=== PATIENT | female | born 1975 | race Caucasian/White ===

== ENCOUNTER 2018-04-12 20:17 | Inpatient (IN) | payer OTHER ==
[~2018-04-12] VITALS: Ht 157.5 cm; Wt 72.6 kg
[2018-04-12 22:04] LABS: BASOPHILS % 0.3 % (0.0-2.0); EOSINOPHILS % 0.5 % (0.0-5.0); HEMATOCRIT. 28.2 % (36.0-48.0); LYMPHOCYTES % 8.6 % (20.0-50.0); MEAN CORPUSCULAR HEMOGLOBIN 31.7 pg (28.0-32.0); MEAN CORPUSCULAR VOLUME 89.7 fL (81.0-99.0); MEAN PLATELET VOLUME 7.7 fl (7.4-10.4); MONOCYTES % 2.6 % (2.0-8.0); PLATELET 252 x1000/uL (130-400); RED BLOOD CELL COUNT 3.15 mill/uL (4.2-5.4); RED CELL DISTRIBUTION WIDTH 18.8 % (11.6-14.6)
[2018-04-12 22:10] LABS: CHLORIDE 102 mEq/L (98-107)
[2018-04-12] MEDS ORDERED: POTASSIUM CHLORIDE 20MEQ TABLET SR PO ONE (23:45)
[2018-04-13] VITALS: BP 139/73
[2018-04-13] MEDS ORDERED: ACETAMINOPHEN 325MG TABLET PO PRN (00:30)
[2018-04-13] MEDS ORDERED: HYDROCODONE/ACETAMINOPHEN 5/325MG TABLET PO PRN (00:30)
[2018-04-13] MEDS ORDERED: DOCUSATE SODIUM 100MG CAPSULE PO PRN (00:30)
[2018-04-13] MEDS ORDERED: CLONIDINE 0.1MG TABLET PO PRN (00:30)
[2018-04-13] MEDS ORDERED: MORPHINE SULFATE 4 MG/ML CPJ (NOT FOR IM USE) IV PRN (00:30)
[2018-04-13] MEDS ORDERED: ONDANSETRON HCL 4MG/2ML INJ IV PRN (00:30)
[2018-04-13 00:33] VITALS: BP 139/73
[2018-04-13 04:00] VITALS: BP 150/82
[2018-04-13 08:00] VITALS: BP 158/86
[2018-04-13] MEDS ORDERED: ENOXAPARIN 40MG/0.4ML SYR SUBCUT SCH (09:00)
[2018-04-13] MEDS ORDERED: AMLODIPINE 10MG TABLET PO SCH (09:00)
[2018-04-13 10:28] VITALS: BP 158/86
== END 2018-04-13 11:05 | disposition home or self-care (01) | DRG 313 ==
LOC: ER 20:17 → ENRESERV 22:15 → 8WST 23:05 → EDBEDREQTM 23:08 → EDBEDREQ 23:08
PROVIDERS: ADMIT Hospitalist; ATTEND Hospitalist
DX: R07.89 Other chest pain (principal); F41.0 Panic disorder [episodic paroxysmal anxiety]; I45.81 Long QT syndrome
CPT/HCPCS: 36415; 71045; 80053; 83880; 84484; 85025; 85379; 93005; 93306; J1650

== ENCOUNTER 2019-01-25 03:23 | Inpatient (IN) | payer OTHER ==
[~2019-01-25] VITALS: Ht 157.5 cm; Wt 68.0 kg
[2019-01-25] MEDS ORDERED: ONDANSETRON HCL 4MG/2ML INJ IV STA (04:17)
[2019-01-25] MEDS ORDERED: MORPHINE SULFATE 4 MG/ML CPJ (NOT FOR IM USE) IV STA (04:17)
[2019-01-25 04:40] LABS: BASOPHILS % 0.3 % (0.0-2.0); EOSINOPHILS % 1.3 % (0.0-5.0); LYMPHOCYTES % 12.2 % (20.0-50.0); MEAN CORPUSCULAR HEMOGLOBIN 24.2 pg (28.0-32.0); MEAN CORPUSCULAR VOLUME 74.8 fL (81.0-99.0); MEAN PLATELET VOLUME 7.7 fl (7.4-10.4); MONOCYTES % 3.9 % (2.0-8.0); NEUTROPHILS % 82.3 % (40.0-76.0); PLATELET 234 x1000/uL (130-400); RED BLOOD CELL COUNT 2.75 mill/uL (4.2-5.4); RED CELL DISTRIBUTION WIDTH 20.6 % (11.6-14.6)
[2019-01-25 04:45] LABS: HEMATOCRIT. 20.6 % (36.0-48.0); HEMOGLOBIN. 6.7 g/dL (12.0-16.0)
[2019-01-25 04:48] LABS: CHLORIDE 106 mEq/L (98-107)
[2019-01-25] MEDS ORDERED: DOCUSATE SODIUM 100MG CAPSULE PO PRN (13:45)
[2019-01-25] MEDS ORDERED: ACETAMINOPHEN 325MG TABLET PO PRN (13:45)
[2019-01-25] MEDS ORDERED: CLONIDINE 0.1MG TABLET PO PRN (13:45)
[2019-01-25] MEDS ORDERED: ONDANSETRON HCL 4MG/2ML INJ IV PRN (13:45)
[2019-01-25] MEDS ORDERED: MAGNESIUM/ALUMINUM HYDROXIDE/SIMETHICONE 30ML UDC PO PRN (13:45)
[2019-01-25] MEDS ORDERED: HYDROCODONE/ACETAMINOPHEN 5/325MG TABLET PO PRN (13:45)
[2019-01-25] MEDS ORDERED: IPRATROPIUM/ALBUTEROL 0.5-3(2.5)MG/3ML NEB INH PRN (13:45)
[2019-01-25 14:40] LABS: TOTAL IRON BINDING CAPACITY 367 ug/dL (250-450)
[2019-01-25 15:00] VITALS: BP 145/65
[2019-01-25 16:00] VITALS: BP 131/69
[2019-01-25] MEDS: FERROUS SULFATE 325MG TABLET PO SCH (18:22)
[2019-01-25] MEDS: MULTIVITAMINS,THER W-MINERALS TABLET PO SCH (18:23)
[2019-01-25] MEDS: FOLIC ACID 1MG TABLET PO SCH (18:23)
[2019-01-25] MEDS: AMLODIPINE 2.5MG TABLET PO SCH ×2 (18:23→22:42)
[2019-01-25] MEDS ORDERED: AMLO2.5T45 MT (19:58)
[2019-01-25 20:00] VITALS: BP 131/65
[2019-01-25 22:05] LABS: HEMATOCRIT 24.1 % (36.0-48.0); HEMOGLOBIN 7.9 g/dL (12.0-16.0)
[2019-01-26] VITALS: BP 131/65
[2019-01-26 04:00] VITALS: BP 138/81
[2019-01-26 07:46] LABS: BASOPHILS % 0.3 % (0.0-2.0); EOSINOPHILS % 1.2 % (0.0-5.0); HEMATOCRIT. 22.7 % (36.0-48.0); HEMOGLOBIN. 7.6 g/dL (12.0-16.0); LYMPHOCYTES % 17.3 % (20.0-50.0); MEAN CORPUSCULAR HEMOGLOBIN 25.5 pg (28.0-32.0); MEAN CORPUSCULAR VOLUME 76.4 fL (81.0-99.0); MEAN PLATELET VOLUME 7.8 fl (7.4-10.4); MONOCYTES % 5.5 % (2.0-8.0); NEUTROPHILS % 75.7 % (40.0-76.0); PLATELET 229 x1000/uL (130-400); RED BLOOD CELL COUNT 2.97 mill/uL (4.2-5.4); RED CELL DISTRIBUTION WIDTH 21.8 % (11.6-14.6)
[2019-01-26 08:00] VITALS: BP 138/73
[2019-01-26 08:09] LABS: CHLORIDE 107 mEq/L (98-107)
[2019-01-26 08:26] LABS: HDL CHOLESTEROL 24 mg/dL (40-59)
[2019-01-26 08:27] LABS: LDL CHOLESTEROL 63 mg/dL (5-100)
[2019-01-26] MEDS: FERROUS SULFATE 325MG TABLET PO SCH (08:54)
[2019-01-26] MEDS: MULTIVITAMINS,THER W-MINERALS TABLET PO SCH (08:54)
[2019-01-26] MEDS: FOLIC ACID 1MG TABLET PO SCH (08:54)
[2019-01-26] MEDS: AMLODIPINE 2.5MG TABLET PO SCH (08:54)
[2019-01-26 12:00] VITALS: BP 125/77
[2019-01-26] MEDS ORDERED: FERR-71 PO (14:19)
[2019-01-26 14:22] VITALS: BP 125/76
== END 2019-01-26 15:10 | disposition home or self-care (01) | DRG 761 ==
LOC: ER 03:23 → 7WST 05:23 → EDBEDREQTM 05:31 → EDBEDREQ 05:31 → ENRESERV 13:45
PROVIDERS: ADMIT Family Medicine Adult Medicine; ATTEND Family Medicine Adult Medicine
PROC: 30233N1 Transfusion of Nonautologous Red Blood Cells into Peripheral Vein, Percutaneous Approach (ICD-10-PCS; principal; 2019-01-25)
DX: D25.9 Leiomyoma of uterus, unspecified (principal); D64.9 Anemia, unspecified; F10.10 Alcohol abuse, uncomplicated; I50.9 Heart failure, unspecified; I11.0 Hypertensive heart disease with heart failure; E80.6 Other disorders of bilirubin metabolism; R07.89 Other chest pain; R74.0 Nonspecific elevation of levels of transaminase and lactic acid dehydrogenase [LDH]; R73.9 Hyperglycemia, unspecified; Z82.49 Family history of ischemic heart disease and other diseases of the circulatory system; Z84.89 Family history of other specified conditions
CPT/HCPCS: 36415; 71045; 76700; 76830; 76856; 80048; 80061; 80076; 83036; 83540; 83550; 83735; 83880; 84100; 84443; 84484; 85014; 85018; 85379; 86850; 86900; 86920; 93005; 93306; 93970; 96374; 96375; 99285; J2270; J2405; P9016

== ENCOUNTER 2019-02-07 06:16 | Emergency (ER) | payer OTHER ==
[~2019-02-07] VITALS: Ht 157.5 cm; Wt 68.0 kg
[~2019-02-07 06:16] MED LIST: AMLO2.5T45 MT; FERR-71 PO
[2019-02-07 07:21] LABS: BASOPHILS % 0.5 % (0.0-2.0); CHLORIDE 105 mEq/L (98-107); EOSINOPHILS % 1.3 % (0.0-5.0); LYMPHOCYTES % 15.3 % (20.0-50.0); MEAN CORPUSCULAR HEMOGLOBIN 28.5 pg (28.0-32.0); MEAN CORPUSCULAR VOLUME 83.4 fL (81.0-99.0); MEAN PLATELET VOLUME 7.4 fl (7.4-10.4); MONOCYTES % 4.2 % (2.0-8.0); NEUTROPHILS % 78.7 % (40.0-76.0); PLATELET 278 x1000/uL (130-400); RED BLOOD CELL COUNT 2.22 mill/uL (4.2-5.4); RED CELL DISTRIBUTION WIDTH 27.8 % (11.6-14.6)
[2019-02-07 07:24] LABS: INR 1.1; PROTHROMBIN TIME 11.1 sec (9.6-11.0)
[2019-02-07 07:26] LABS: HCG SCREEN NEGATIVE
[2019-02-07 07:42] LABS: HEMATOCRIT. 18.5 % (36.0-48.0); HEMOGLOBIN. 6.3 g/dL (12.0-16.0)
[2019-02-07 08:14] LABS: PLATELET ESTIMATE NORMAL
[2019-02-07 11:22] VITALS: BP 116/71
== END 2019-02-07 11:23 | disposition home or self-care (01) ==
LOC: ER 06:16
DX: D64.9 Anemia, unspecified (principal); R10.31 Right lower quadrant pain; R10.32 Left lower quadrant pain; Z79.899 Other long term (current) drug therapy
CPT/HCPCS: 36415; 80053; 84703; 85025; 85610; 86850; 86900; 86901; 86920; 99291; J7040; Z7610; P9016

== ENCOUNTER 2019-03-07 06:00 | Inpatient (IN) | payer OTHER ==
[~2019-03-07] VITALS: Ht 157.5 cm; Wt 68.0 kg
[2019-03-07] MEDS ORDERED: SODIUM CHLORIDE 0.9% 1,000 ML IV ONE (06:25)
[2019-03-07] MEDS ORDERED: KETOROLAC 30MG/ML VIAL IV ONE (06:30)
[2019-03-07 06:45] LABS: CLARITY URINE CLOUDY (CLEAR); KETONES URINE TRACE (NEGATIVE); LEUKOCYTE ESTERASE URINE 1+ (NEGATIVE); NITRITE URINE NEGATIVE (NEGATIVE); OCCULT BLOOD URINE 3+ (NEGATIVE); PROTEIN URINE 2+ (NEGATIVE); SPECIFIC GRAVITY URINE 1.013 (1.005-1.030)
[2019-03-07 06:48] LABS: COLOR URINE BLOODY (YELLOW)
[2019-03-07 07:01] LABS: CHLORIDE 108 mEq/L (98-107)
[2019-03-07 07:02] LABS: BASOPHILS % 0.6 % (0.0-2.0); EOSINOPHILS % 2.7 % (0.0-5.0); LYMPHOCYTES % 19.4 % (20.0-50.0); MEAN CORPUSCULAR HEMOGLOBIN 33.6 pg (28.0-32.0); MEAN CORPUSCULAR VOLUME 96.7 fL (81.0-99.0); MEAN PLATELET VOLUME 7.4 fl (7.4-10.4); MONOCYTES % 4.7 % (2.0-8.0); NEUTROPHILS % 72.6 % (40.0-76.0); PLATELET 296 x1000/uL (130-400); RED BLOOD CELL COUNT 1.94 mill/uL (4.2-5.4)
[2019-03-07 07:04] LABS: PARTIAL THROMBOPLASTIN TIME 27.1 sec (23.4-31.0); PROTHROMBIN TIME 10.4 sec (9.6-11.0)
[2019-03-07 07:06] LABS: HEMATOCRIT. 18.7 % (36.0-48.0); HEMOGLOBIN. 6.5 g/dL (12.0-16.0)
[2019-03-07 07:28] LABS: B-HCG QUANTITATIVE < 1 mIU/mL (<3)
[2019-03-07] MEDS ORDERED: CEFTRIAXONE 1 G PREMIX 50 ML IV ONE (08:15)
[2019-03-07 10:35] VITALS: BP 150/76
[2019-03-07] MEDS ORDERED: MEDR10TA11 PO (11:10)
[2019-03-07] MEDS ORDERED: IBUP-1653 PO (11:13)
[2019-03-07] MEDS ORDERED: VIT1TABL77 PO (11:13)
[2019-03-07 12:00] VITALS: BP 155/70
[2019-03-07] MEDS ORDERED: DOCUSATE SODIUM 100MG CAPSULE PO PRN (14:30)
[2019-03-07] MEDS ORDERED: HYDROCODONE/ACETAMINOPHEN 5/325MG TABLET PO PRN (14:30)
[2019-03-07] MEDS ORDERED: ONDANSETRON HCL 4MG/2ML INJ IV PRN (14:30)
[2019-03-07] MEDS ORDERED: LORAZEPAM 0.5MG TABLET PO PRN (14:30)
[2019-03-07] MEDS ORDERED: SODIUM CHLORIDE 0.9% 1,000 ML IV SCH (15:00)
[2019-03-07] MEDS: ESTROGENS,CONJUGATED 25MG/VIAL IV SCH ×2 (15:43→22:55)
[2019-03-07] MEDS ORDERED: MVI, ADULT NO.1 10 ML, FOLIC ACID 1 MG, THIAMINE HCL 100 MG in SODIUM CHLORIDE 0.9% 1,0... IV SCH ×4 (16:00)
[2019-03-07 18:13] LABS: BASOPHILS % 0.3 % (0.0-2.0); EOSINOPHILS % 1.5 % (0.0-5.0); HEMATOCRIT. 22.1 % (36.0-48.0); HEMOGLOBIN. 7.6 g/dL (12.0-16.0); LYMPHOCYTES % 17.4 % (20.0-50.0); MEAN CORPUSCULAR HEMOGLOBIN 31.4 pg (28.0-32.0); MEAN CORPUSCULAR VOLUME 90.7 fL (81.0-99.0); MEAN PLATELET VOLUME 7.4 fl (7.4-10.4); MONOCYTES % 4.8 % (2.0-8.0); PLATELET 237 x1000/uL (130-400); RED BLOOD CELL COUNT 2.44 mill/uL (4.2-5.4); RED CELL DISTRIBUTION WIDTH 23.6 % (11.6-14.6)
[2019-03-07 18:21] LABS: PROTHROMBIN TIME 10.7 sec (9.6-11.0)
[2019-03-07 20:00] VITALS: BP 150/53
[2019-03-08] VITALS: BP 118/60
[2019-03-08] MEDS: ESTROGENS,CONJUGATED 25MG/VIAL IV SCH (03:59)
[2019-03-08 04:00] VITALS: BP 121/62
[2019-03-08 07:10] LABS: BASOPHILS % 0.4 % (0.0-2.0); EOSINOPHILS % 1.7 % (0.0-5.0); LYMPHOCYTES % 17.5 % (20.0-50.0); MEAN CORPUSCULAR HEMOGLOBIN 30.9 pg (28.0-32.0); MEAN CORPUSCULAR VOLUME 91.2 fL (81.0-99.0); MEAN PLATELET VOLUME 7.4 fl (7.4-10.4); MONOCYTES % 4.5 % (2.0-8.0); NEUTROPHILS % 75.9 % (40.0-76.0); PLATELET 217 x1000/uL (130-400); RED BLOOD CELL COUNT 2.08 mill/uL (4.2-5.4); RED CELL DISTRIBUTION WIDTH 23.4 % (11.6-14.6)
[2019-03-08 07:28] LABS: CHLORIDE 108 mEq/L (98-107)
[2019-03-08] MEDS ORDERED: FERROUS SULFATE 325MG TABLET PO SCH (07:50)
[2019-03-08 08:00] VITALS: BP 132/75
[2019-03-08 08:13] LABS: HEMOGLOBIN. 6.4 g/dL (12.0-16.0)
[2019-03-08 11:43] VITALS: BP 145/70
[2019-03-08 11:56] LABS: PLATELET ESTIMATE NORMAL
== END 2019-03-08 12:00 | disposition home or self-care (01) | DRG 812 ==
LOC: ER 06:00 → 6EST 08:01 → EDBEDREQ 08:13 → CANRESERV 09:27 → ENRESERV 09:27
PROVIDERS: ADMIT Obstetrics & Gynecology; ATTEND Obstetrics & Gynecology
PROC: 30233N1 Transfusion of Nonautologous Red Blood Cells into Peripheral Vein, Percutaneous Approach (ICD-10-PCS; principal; 2019-03-07)
DX: D50.0 Iron deficiency anemia secondary to blood loss (chronic) (principal); I10 Essential (primary) hypertension
CPT/HCPCS: 36415; 80048; 81003; 84702; 85049; 85384; 86850; 86900; 86920; 96374; 99285; J0696; J1410; J1885; J3411; J3490; J7030; P9021

== ENCOUNTER 2019-06-11 22:20 | Inpatient (IN) | payer OTHER ==
[~2019-06-11] VITALS: Ht 157.5 cm; Wt 72.6 kg
[~2019-06-11 22:20] MED LIST changes: +IBUP-1653 PO; +MEDR10TA11 PO; +VIT1TABL77 PO
[2019-06-11] MEDS ORDERED: SODIUM CHLORIDE 0.9% 1,000 ML IV ONE (23:52)
[2019-06-12] VITALS (10 sets, daily range): BP systolic 95–157; BP diastolic 59–82
[2019-06-12 00:10] LABS: BASOPHILS % 0.3 % (0.0-2.0); LYMPHOCYTES % 10.2 % (20.0-50.0); MEAN CORPUSCULAR HEMOGLOBIN 21.7 pg (28.0-32.0); MEAN CORPUSCULAR VOLUME 69.2 fL (81.0-99.0); MEAN PLATELET VOLUME 7.3 fl (7.4-10.4); MONOCYTES % 3.7 % (2.0-8.0); NEUTROPHILS % 84.8 % (40.0-76.0); PLATELET 228 x1000/uL (130-400); RED BLOOD CELL COUNT 2.42 mill/uL (4.2-5.4); RED CELL DISTRIBUTION WIDTH 21.3 % (11.6-14.6)
[2019-06-12 00:16] LABS: HEMOGLOBIN. 5.2 g/dL (12.0-16.0)
[2019-06-12 00:17] LABS: HEMATOCRIT. 16.7 % (36.0-48.0)
[2019-06-12 00:38] LABS: CLARITY URINE CLEAR (CLEAR); COLOR URINE YELLOW (YELLOW); KETONES URINE NEGATIVE (NEGATIVE); LEUKOCYTE ESTERASE URINE NEGATIVE (NEGATIVE); NITRITE URINE NEGATIVE (NEGATIVE); OCCULT BLOOD URINE NEGATIVE (NEGATIVE); PH URINE 5.5 (4.5-8.0); PROTEIN URINE NEGATIVE (NEGATIVE); SPECIFIC GRAVITY URINE 1.007 (1.005-1.030); UROBILINOGEN URINE 0.2 E.U./dL (0.2-1.0)
[2019-06-12 00:41] LABS: CHLORIDE 108 mEq/L (98-107)
[2019-06-12 01:42] LABS: TOTAL IRON BINDING CAPACITY 446 ug/dL (250-450)
[2019-06-12] MEDS ORDERED: FUROSEMIDE 20MG/2ML VIAL IVP ONE (02:15)
[2019-06-12 05:01] LABS: PLATELET ESTIMATE NORMAL
[2019-06-12] MEDS ORDERED: ACETAMINOPHEN 325MG TABLET PO PRN (06:45)
[2019-06-12] MEDS ORDERED: HYDROCODONE/ACETAMINOPHEN 5/325MG TABLET PO PRN (06:45)
[2019-06-12] MEDS: AMLODIPINE 10MG TABLET PO SCH (09:58)
[2019-06-12] MEDS: FERROUS SULFATE 325MG TABLET PO SCH ×3 (09:58→18:29)
[2019-06-12] MEDS: FUROSEMIDE 40MG/4ML VIAL IV SCH (09:58)
[2019-06-12 10:39] LABS: HEMATOCRIT 22.4 % (36.0-48.0); HEMOGLOBIN 7.4 g/dL (12.0-16.0)
[2019-06-12 17:08] LABS: HEMATOCRIT 26.4 % (36.0-48.0); HEMOGLOBIN 8.7 g/dL (12.0-16.0)
[2019-06-12] MEDS ORDERED: PNEUMOCOCCAL 23-VAL P-SAC VAC 0.5 ML IM ONE (17:30)
[2019-06-13] VITALS: BP 135/75
[2019-06-13 03:39] VITALS: BP 131/75
[2019-06-13 06:40] LABS: CHLORIDE 108 mEq/L (98-107)
[2019-06-13 06:50] LABS: BASOPHILS % 0.5 % (0.0-2.0); EOSINOPHILS % 2.4 % (0.0-5.0); HEMATOCRIT. 24.7 % (36.0-48.0); HEMOGLOBIN. 8.3 g/dL (12.0-16.0); LYMPHOCYTES % 15.3 % (20.0-50.0); MEAN CORPUSCULAR HEMOGLOBIN 24.6 pg (28.0-32.0); MEAN CORPUSCULAR VOLUME 73.3 fL (81.0-99.0); MEAN PLATELET VOLUME 7.7 fl (7.4-10.4); MONOCYTES % 6.2 % (2.0-8.0); NEUTROPHILS % 75.6 % (40.0-76.0); PLATELET 178 x1000/uL (130-400); RED BLOOD CELL COUNT 3.37 mill/uL (4.2-5.4); RED CELL DISTRIBUTION WIDTH 24.1 % (11.6-14.6)
[2019-06-13 08:00] VITALS: BP 163/77
[2019-06-13] MEDS: FERROUS SULFATE 325MG TABLET PO SCH (08:40)
[2019-06-13] MEDS: FUROSEMIDE 40MG/4ML VIAL IV SCH (08:40)
[2019-06-13] MEDS: AMLODIPINE 10MG TABLET PO SCH (08:41)
[2019-06-13 09:09] LABS: BG BASE EXCESS 0.1 mmol/L (-2.0-2.0); BG CARBOXYHEMOGLOBIN 2.2 % (0.5-1.5); BG DEOXYHEMOGLOBIN 7.1 % (0.0-5.0); BG FRACTION INSPIRED OXYGEN 21; BG HCO3 ACT 23.6 mmol/L (22.0-26.0); BG METHEMOGLOBIN 0.3 % (0.0-1.5); BG OXYGEN SATURATION 92.7 % (92.0-98.5); BG OXYHEMOGLOBIN 90.4 % (94.0-97.0); BG PCO2 33.7 mmHg (35.0-45.0); BG PH 7.463 (7.350-7.450); BG PO2 65.7 mmHg (75.0-100.0); BG SAMPLE SITE RIGHT RADIAL; BG TOTAL HEMOGLOBIN 9.6 g/dL (12.0-18.0); BG VENT MODE ROOM AIR
[2019-06-13 11:16] VITALS: BP 148/74
== END 2019-06-13 11:51 | disposition home or self-care (01) | DRG 812 ==
LOC: ER 22:20 → 7WST 06-12 02:17 → EDBEDREQ 06-12 02:19 → EDBEDREQTM 06-12 02:19 → ENRESERV 06-12 07:05
PROVIDERS: ADMIT Hospitalist; ATTEND Hospitalist
PROC: 30233N1 Transfusion of Nonautologous Red Blood Cells into Peripheral Vein, Percutaneous Approach (ICD-10-PCS; principal; 2019-06-12)
DX: D50.9 Iron deficiency anemia, unspecified (principal); I11.0 Hypertensive heart disease with heart failure; I50.9 Heart failure, unspecified; Z79.899 Other long term (current) drug therapy
CPT/HCPCS: 36415; 36600; 71045; 81003; 82375; 82805; 83540; 83550; 83880; 84484; 85014; 85018; 86850; 86900; 86920; 90732; 93005; 93306; 93970; 99291; J1940; J7030; J7040; P9016; P9021

== ENCOUNTER 2023-07-26 13:26 | Emergency (ER) | payer OTHER ==
[~2023-07-26] VITALS: Ht 154.9 cm; Wt 68.0 kg
[2023-07-26 13:31] VITALS: BP 198/96; PULSE 89; RESP 16; TEMP 98; O2SAT 100
[2023-07-26] MEDS ORDERED: NAPR-1129 MT (15:56)
[2023-07-26] MEDS ORDERED: AMOX1TAB16 MT (15:56)
== END 2023-07-26 16:48 | disposition home or self-care (01) ==
LOC: ER 15:11
DX: S61.052A Open bite of left thumb without damage to nail, initial encounter (principal); I10 Essential (primary) hypertension; Z79.899 Other long term (current) drug therapy; W54.0XXA Bitten by dog, initial encounter; Y93.89 Activity, other specified; Y92.89 Other specified places as the place of occurrence of the external cause; Y99.8 Other external cause status
CPT/HCPCS: 73140; 99283